=== PATIENT | female | born 1985 | race Caucasian/White ===

== ENCOUNTER 2022-01-05 05:37 | Inpatient (IN) | payer MEDICAID, OTHER ==
[2022-01-04 10:50] LABS: Hemoglobin 11.9 g/dL (12.0-15.5); Mean Corpuscular HGB CONC 33.7 g/dL (32.0-36.0); Mean Corpuscular Hemoglobin 28.6 pg (27.0-33.0); Mean Corpuscular Volume 84.9 fl (81.6-98.3); Mean Platelet Volume 10.2 fl (7.4-10.4); Platelet Count 297 10x3/uL (150-450); RBC Distribution Width 14.2 % (11.5-14.5); Red Blood Cell (RBC) Count 4.16 10x6/uL (3.90-5.03); White Blood Cell (WBC) Count 10.5 10x3/uL (3.5-10.5)
[2022-01-04 11:19] LABS: SARS-CoV-2 NAA Rapid Test Not Detected (NotDetected)
[2022-01-04 11:30] LABS: Hep B Surf Ag Non-Reactive S/CO (NonReactive); Syphilis Antibody Nonreactive (Nonreactive); Syphilis Antibody Index 0.27 S/CO (<1.00 Non-Reactive)
[2022-01-05] MEDS ORDERED: Bicitra 30 ML UDCUP PO PRN (05:50)
[2022-01-05] MEDS ORDERED: Lactated Ringer's 1,000 ML IV SCH (05:50)
[2022-01-05] MEDS ORDERED: Famotidine/PF 20 mg/2ml Vial SLOW IVP PRN (05:50)
[2022-01-05] MEDS ORDERED: CEFAZOLIN 2 GM in Sodium Chloride 0.9% 100 ML IVPB SCH (05:50)
[2022-01-05] MEDS ORDERED: Ondansetron PF 4 MG/2 ML Vial IVP PRN ×2 (05:50→08:27)
[2022-01-05] MEDS ORDERED: Promethazine HCl 25 MG/ML VIAL IM PRN ×2 (05:50→08:27)
[2022-01-05] MEDS ORDERED: hydrALAZINE 20 MG/ML VIAL SLOW IVP PRN ×2 (05:50→08:22)
[2022-01-05 06:05] VITALS: BMI 36.0
[2022-01-05] MEDS ORDERED: ePHEDrine Sulfate 50 MG/10 ML VIAL ONE (06:59)
[2022-01-05] MEDS ORDERED: Morphine PF 10 MG/10 ML VIAL ONE (06:59)
[2022-01-05] MEDS ORDERED: Ondansetron PF 4 MG/2 ML Vial ONE ×3 (07:00→07:05)
[2022-01-05] MEDS ORDERED: Glycopyrrolate 0.2 MG/ML 5 ML SYRINGE ONE (07:00)
[2022-01-05] MEDS ORDERED: Oxytocin 10 UNITS/ML VIAL ONE (07:00)
[2022-01-05] MEDS ORDERED: Phenylephrine 40 MG/NS 250 ML 250 ML ONE (07:00)
[2022-01-05] MEDS ORDERED: Ketorolac Tromethamine 30 MG/ML VIAL ONE (07:00)
[2022-01-05] MEDS ORDERED: PHENYLEPHRINE-NS 100 MCG/ML 10 ML SYRINGE ONE (07:00)
[2022-01-05] MEDS ORDERED: Dexamethasone 4 mg/ml Vial ONE (07:00)
[2022-01-05] MEDS ORDERED: Simethicone Chewable 80 MG TAB PO PRN (08:22)
[2022-01-05] MEDS ORDERED: Lanolin Ointment 7 GM TUBE TOP PRN (08:22)
[2022-01-05] MEDS ORDERED: HYDROcodone/Acetaminophen 5/325 mg Tablet PO PRN ×2 (08:22)
[2022-01-05] MEDS ORDERED: Acetaminophen 325 MG TAB PO PRN (08:22)
[2022-01-05] MEDS ORDERED: Bisacodyl 10 MG SUPP PR PRN (08:22)
[2022-01-05] MEDS ORDERED: Zolpidem Tartrate 5 MG TAB PO PRN (08:22)
[2022-01-05] MEDS ORDERED: Naloxone HCl 0.4 mg/ml Vial IV PRN (08:27)
[2022-01-05] MEDS ORDERED: Fentanyl 100 MCG/2 ML VIAL SLOW IVP PRN (08:27)
[2022-01-05] MEDS ORDERED: Moisturizing Cream (Eucerin) 113 GM JAR TOP PRN (08:27)
[2022-01-05] MEDS ORDERED: Meperidine HCl/PF 25 MG/ML VIAL SLOW IVP PRN (08:27)
[2022-01-05] MEDS ORDERED: Ondansetron HCl/PF 4 MG/2 ML Vial IVP PRN (08:27)
[2022-01-05] MEDS ORDERED: diphenhydrAMINE 50 MG/ML VIAL IVP PRN (08:27)
[2022-01-05] MEDS ORDERED: Promethazine HCl 25 MG SUPP PR PRN (08:27)
[2022-01-05] MEDS ORDERED: Naloxone HCl 0.4 mg/ml Vial IVP PRN ×2 (08:27)
[2022-01-05] MEDS ORDERED: Ketorolac Tromethamine 30 MG/ML VIAL IVP SCH ×2 (08:30→13:00)
[2022-01-05] MEDS ORDERED: Communication Order-Pharmacy FS SCH (08:30)
[2022-01-05] MEDS: Docusate 100 MG CAP PO SCH ×2 (11:10→20:41)
[2022-01-05] MEDS: Prenatal Vitamin 1 TAB PO SCH (11:11)
[2022-01-05] MEDS: Ferrous Sulfate 325 MG TAB PO SCH ×2 (11:11→20:41)
[2022-01-05] MEDS: diphenhydrAMINE 25 MG CAP PO PRN ×2 (15:31→21:00)
[2022-01-05] MEDS: Ketorolac Tromethamine 30 MG/ML VIAL IVP SCH (20:41)
[2022-01-06] MEDS: Ketorolac Tromethamine 30 MG/ML VIAL IVP SCH ×3 (03:40→18:43)
[2022-01-06 04:41] LABS: Hemoglobin 11.1 g/dL (12.0-15.5); Mean Corpuscular HGB CONC 34.3 g/dL (32.0-36.0); Mean Corpuscular Hemoglobin 29.1 pg (27.0-33.0); Platelet Count 271 10x3/uL (150-450); RBC Distribution Width 14.2 % (11.5-14.5); Red Blood Cell (RBC) Count 3.81 10x6/uL (3.90-5.03); White Blood Cell (WBC) Count 15.8 10x3/uL (3.5-10.5)
[2022-01-06] MEDS ORDERED: Boostrix 0.5 ML (Tdap) VIAL (>/=7 yrs of age) IM ONE (08:22)
[2022-01-06] MEDS ORDERED: HYDROcodone/Acetaminophen 5/325 mg Tablet PO PRN (09:15)
[2022-01-06] MEDS: HYDROcodone/Acetaminophen 5/325 mg Tablet PO PRN ×2 (09:45→18:42)
[2022-01-06] MEDS: Ferrous Sulfate 325 MG TAB PO SCH ×2 (09:46→21:52)
[2022-01-06] MEDS: Docusate 100 MG CAP PO SCH ×2 (09:46→21:52)
[2022-01-06] MEDS: Prenatal Vitamin 1 TAB PO SCH (09:46)
[2022-01-06] MEDS: Ibuprofen 800 MG TAB PO SCH (21:52)
[2022-01-07] MEDS: Ibuprofen 800 MG TAB PO SCH ×2 (05:10→13:59)
[2022-01-07] MEDS: Ferrous Sulfate 325 MG TAB PO SCH (09:34)
[2022-01-07] MEDS: Prenatal Vitamin 1 TAB PO SCH (09:37)
[2022-01-07] MEDS: Docusate 100 MG CAP PO SCH (09:37)
[2022-01-07] MEDS: HYDROcodone/Acetaminophen 5/325 mg Tablet PO PRN (10:46)
[2022-01-07 16:48] VITALS: BP 111/66; TEMP 98.4
== END 2022-01-07 16:45 | disposition home or self-care (01) | DRG 788 ==
LOC: CSHLD 05:37 → CSHPP 10:33
PROVIDERS: ADMIT Obstetrics & Gynecology; ATTEND Obstetrics & Gynecology
PROC: 10D00Z1 Extraction of Products of Conception, Low, Open Approach (ICD-10-PCS; principal; 2022-01-05)
PROC: 3E0334Z Introduction of Serum, Toxoid and Vaccine into Peripheral Vein, Percutaneous Approach (ICD-10-PCS; 2022-01-05)
DX: O34.211 Maternal care for low transverse scar from previous cesarean delivery (principal); Z3A.39 39 weeks gestation of pregnancy; Z37.0 Single live birth; O26.893 Other specified pregnancy related conditions, third trimester; Z67.21 Type B blood, Rh negative; Z20.822 Contact with and (suspected) exposure to COVID-19
CPT/HCPCS: 36415; 51702; 85027; 85461; 86780; 86850; 86900; 86901; 87340; 90384; 96372; J1100; J1200; J1885; J2274; J2405; J2590; U0002